=== PATIENT | female | born 1985 | race Caucasian/White ===

== ENCOUNTER 2018-12-23 20:00 | Emergency (ER) | payer BC ==
[~2018-12-23] VITALS: Ht 154.9 cm; Wt 74.8 kg
[2018-12-23 20:17] VITALS: Ht 154.9 cm; Wt 74.8 kg
[2018-12-24 00:04] VITALS: BP 125/74
== END 2018-12-24 00:04 | disposition home or self-care (01) ==
LOC: ED 20:00
DX: N39.0 Urinary tract infection, site not specified (principal); M54.5 Low back pain
CPT/HCPCS: J1885